=== PATIENT | female | born 1960 | race Caucasian/White ===

== ENCOUNTER 2024-12-11 10:02 | Inpatient (IN) | payer OTHER, SELFPAY ==
--- NOTE | ~2024-12-11 | CT_ITS ---
EXAMINATION: CT ABDOMEN PELVIS WITH IV CONTRAST HISTORY: RUQ abd pain COMPARISON: There are no prior studies for comparison. TECHNIQUE: CT scan of the abdomen and pelvis was performed following administration of 85 mL Omnipaque 350 using standard departmental protocol. Coronal and sagittal reformatted images were generated and reviewed. Oral contrast material was not administered at the request of the referring physician. This CT exam was performed with one or more of the following dose reduction techniques: automated exposure control, adjustment of the mA and/or kV according to patient size, use of iterative reconstruction technique. DLP: 667 mGy-cm FINDINGS: LOWER CHEST: The visualized lung bases are clear. There is no pleural effusion. CARDIOVASCULATURE: The heart is normal in size. There is no pericardial effusion. LIVER: The liver is normal in size and contour. No liver mass is identified. The hepatic and portal veins are patent. GALLBLADDER / BILE DUCTS: The gallbladder is unremarkable. There is no intra or extrahepatic biliary ductal dilatation. SPLEEN: The spleen is normal in size. No focal splenic lesion is identified. PANCREAS: The pancreas is unremarkable in appearance. ADRENAL GLANDS: Within normal limits. KIDNEYS/RETROPERITONEUM: There is a punctate nonobstructing calculus at the lower pole of the left kidney. There is no hydronephrosis. No renal masses are identified. LYMPH NODES: No abdominal or pelvic lymphadenopathy. VASCULATURE: The abdominal aorta demonstrates atherosclerotic calcification, but is normal in caliber. MESENTERY/PERITONEUM: No free fluid. No masses. There is no free intraperitoneal gas. STOMACH: The stomach is collapsed, limiting evaluation. SMALL BOWEL: The small bowel is normal in caliber. COLON: There is diffuse diverticulosis of the colon. There is a focal area of marked colonic wall thickening and pericolonic inflammatory stranding involving the proximal transverse colon. Findings likely represent diverticulitis. There is no adjacent extraluminal gas or loculated fluid collection. APPENDIX: Normal. URINARY BLADDER/PELVIC ORGANS: The urinary bladder is collapsed, limiting evaluation. The patient is status post hysterectomy. BONES / SOFT TISSUES: No suspicious bony or soft tissue abnormalities. CT/CT abdomen pelvis w IV con IMPRESSION: Marked wall thickening of the proximal transverse colon with associated pericolonic inflammatory stranding, likely representing diverticulitis. Follow-up colonoscopy is recommended to exclude underlying neoplasm if this has not recently been performed. Electronically signed by: Gerard Manrique MD 12/11/2024 12:02 PM EDT
--- NOTE | 2024-12-11 10:05 | ED_ITS ---
HPI - General Adult General Chief complaint: Abdominal Pain Stated complaint: Abd pain R side Time Seen by Provider: 12/11/24 10:04 Source: patient and other (patient's [id number]) Mode of arrival: ambulatory Limitations: no limitations History of Present Illness ED Provider: Tata Feliz PA-C HPI narrative: 64 year old female with PMHx COPD, IBS, diverticulitits s/p colectomy, presenting to ED c/o abd pain. She reports RLQ pain that woke her up from sleep around 0500, that has since migrated to the RUQ. She describes the pain as 10/10 nonradiating, sharp, and constant, and states it does not feel like her IBS. Reports last BM this AM. Reports previous abd surgeries include partial hysterectomy and colon resection secondary to diverticulitis. Denies RODRIGUEZ, CP, SOB, N/V/D, urinary symptoms, numbness/tingling. Denies alcohol or drug use. Reports smoking 1/2 pack cigarettes daily, however has not smoked in a few days. Reports last ate or drank at midnight. Onset (ago): hour(s) Location: abdomen Radiation: non-radiation Quality: sharp Pain Consistency: constant Relieving factors: none Exacerbating factors: none Treatments prior to arrival: none Related Data Allergies Allergy/AdvReac Type Severity Reaction Status Date / Time Sulfa (Sulfonamide AdvReac Gastrointestinal Verified 12/11/24 10:12 Antibiotics) Upset Review of Systems 2 Constitutional: Constitutional: Reports no additional constitutional complaints, Reports chills, Denies fever(s) and Denies night sweats Eyes: Eyes: Reports no additional eye complaints, Denies blurry vision, Denies change in vision, Denies diplopia, Denies eye discharge, Denies loss of vision and Denies eye pain ENT: Denies dizziness Cardiovascular: Cardiovascular: Reports no additional cardiovascular complaints, Denies chest pain, Denies lightheadedness, Denies Loss of Consciousness and Denies dyspnea Respiratory: Respiratory: Reports no additional respiratory complaints and Denies dyspnea Gastrointestinal: Gastrointestinal: Reports no additional gastrointestinal complaints, Reports abdominal pain, Denies melena, Denies hematochezia, Denies change in bowel habits, Denies change in stool character, Denies nausea and Denies vomiting Genitourinary: Genitourinary: Denies hematuria, Denies urinary frequency, Denies dysuria, Denies urinary incontinence, Denies urinary hesitancy and Denies urinary urgency Musculoskeletal: Musculoskeletal: Reports no additional musculoskeletal complaints, Denies numbness and Denies tingling Neurologic: Denies dizziness, Denies loss of vision, Denies numbness and Denies tingling Psychiatric: Psychiatric: Reports no additional psychiatric complaints Endocrine: Endocrine: Reports no additional endocrine complaints Hematologic/Lymphatic: Hematologic/Lymphatic: Reports no additional hematologic/lymphatic complaints Allergic/Immunologic: Allergic/Immunologic: Reports no additional allergic/immunologic complaints PMFSH Past Medical History Attestation statement: The following information was validated with the patient. (all information validated with the patient's [id number]) Source: old records reviewed, obtained from family (patient's [id number] provided additional history and confirmed the history provided by the patient. ) and nursing notes reviewed Medical History (Updated 12/11/24 @ 13:50 by SILVER Quesada) COPD (chronic obstructive pulmonary disease) History of diverticulitis Hyperlipidemia Hypertension Surgical History (Updated 12/11/24 @ 13:24 by SILVER Jackson) S/P hysterectomy S/P colectomy Social History Social History Alcohol intake: current Alcohol intake frequency: holidays/special occasions only Smoked in Last 30 Days: Yes Use of substances other than those prescribed or required for medical reasons: No Advance Directives: No Advance Directives Information Provided: Yes Physical Exam ED Vital Signs: Vital Signs - 24 hr 12/11/24 10:08 Temperature 98.3 F Pulse Rate 74 Respiratory Rate 20 Blood Pressure 140/82 H Pulse Oximetry 95 Oxygen Delivery Method Room Air BMI result Body Mass Index 30.2 Const General: cooperative, no acute distress, alert and awake Nutritional Appearance: well nourished Orientation/consciousness: patient oriented x3 Limitations: no limitations HENMT Head: Yes normal to inspection and Yes atraumatic Ears: hearing grossly normal bilaterally and external ears normal General nose exam: Normal external nose present, no nasal discharge noted and no epistaxis Face and sinus: Yes normal facial exam, No abrasion and No laceration Mouth: Normal oral and palatal mucosa present, no drooling and no muffled voice Eyes General: appearance normal, both eyes and all related structures Periorbital: periorbital findings normal Eyelids: Yes eyelids normal Conjunctivae: conjunctivae normal Pupils: Equal, round and reactive pupils present EOM: EOMs intact bilaterally Neck Neck: Yes normal visual inspection, Yes full ROM and Yes no lymphadenopathy Chest Chest palpation & inspection: normal inspection of the chest Resp Effort & Inspection: normal respiratory effort and able to speak in complete sentences GI Inspection: Yes normal to inspection Palpation (GI): Soft to palpation, not firm, Tenderness to palpation present (GI), no guarding and not rigid Neuro General: patient oriented x3, moves all extremities and CN's II-XI intact bilaterally Cranial nerves: Yes Equal, round and reactive pupils present Cognition (Neuro): normal cognition Extrem General: Yes normal to inspection, Yes full ROM and Yes capillary refill normal Psych Appearance: grossly normal Mental Status: mental status grossly normal Affect: normal affect Attitude: cooperative Thought process: Normal thought process present Thought content: Normal thought content present Insight: Good insight present (Psych) Medications Administered Generic Name Dose Route Start Last Admin Trade Name Freq PRN Reason Stop Dose Admin Metronidazole 500 mg in 100 mls @ 100 mls/hr 12/11/24 13:00 12/11/24 13:24 Flagyl IV 100 mls/hr Q8H TASH Administration Discontinued Medications Generic Name Dose Route Start Last Admin Trade Name Freq PRN Reason Stop Dose Admin Acetaminophen 1,000 mg in 100 mls @ 400 mls/hr 12/11/24 11:46 12/11/24 12:38 Ofirmev IV 12/11/24 12:00 Infused ONCE ONE Infusion Sodium Chloride 1,000 mls @ 999 mls/hr 12/11/24 12:00 12/11/24 13:27 Ns IV 12/11/24 13:00 Infused .Q1H1M TASH Infusion Ampicillin Sodium/Sulbactam 100 mls @ 200 mls/hr 12/11/24 12:12 12/11/24 13:27 Sodium 1.5 gm/ Sodium Chloride IV 12/11/24 12:41 Infused ONCE ONE Infusion Iohexol 85 ml 12/11/24 11:47 12/11/24 11:47 Iohexol 350 Mg/Ml 75 Ml Infus..Btl IV 12/11/24 11:48 85 ml ONCE ONE Administration Morphine Sulfate 4 mg 12/11/24 10:20 12/11/24 10:38 Morphine Sulfate 4 Mg/Ml Cartridge IVPUSH 12/11/24 10:21 4 mg ONCE ONE Administration Protocol Ondansetron HCl 4 mg 12/11/24 10:20 12/11/24 10:36 Ondansetron Hcl 4 Mg/2 Ml Vial IVPUSH 12/11/24 10:21 4 mg ONCE ONE Administration Pantoprazole Sodium 40 mg 12/11/24 10:21 12/11/24 10:41 Pantoprazole Sodium 40 Mg/10 Ml Vial IVPUSH 12/11/24 10:22 40 mg ONCE ONE Administration Medical Decision Making Medical Decision Making MDM Narrative: Patient is a 64 year old assigned female at with a history of tobacco use, partial hysterectomy, and a colectomy secondary to diverticulitis. presenting to the emergency department today with abdominal pain and chills. Patient's physical exam was as noted in the physical exam portion of this note. Patient's blood work showed an elevated WBC count of 12.9 with a left shift but otherwise unremarkable. Patient's CT abd/pelvis showed evidence of diverticulitis. Given the patient's history and current clinical presentation, will admit. Patient was given IV flagyl + unasyn and Morphine + Tylenol. I spoke with the hospitalist team who agreed to admission. General surgery team consulted on the case. Patient's clinical presentation is not consistent with sepsis. I explained my physical exam findings as well as all test results to the patient and the patient's [id number]. I answered all questions asked by the patient and the patient's [id number]. Patient and the patient's [id number] verbalized agreement and understanding with this treatment plan and admission. Differential Diagnosis Differential Diagnoses: The differential diagnosis associated with the presentation includes Diverticulitis Abdominal pain Intractable abdominal pain Admission/Observation Consideration of admission/observation: Escalation of care including admission/observation considered Patient admitted as noted in the MDM Rationale portion of this note. Consult Healthcare Provider Management of the patient was discussed with: Hospitalist (agreed to admission as noted in the MDM Rationale portion of this note. ) and Infrastructure Security Architect (general surgery team consulted) Lab Data [facility] Lab Attestation statement: I reviewed the patient's lab results. My interpretation of these results are in the MDM Rationale portion of this note. 12/11/24 10:29 12/11/24 10:29 Labs: Lab Results 12/11/24 12/11/24 Range/Units 10:29 12:11 WBC 12.9 H (4.8-10.8) X10*3/uL RBC 4.76 (4.20-5.50) X10*6/uL Hgb 15.1 (12.0-16.0) g/dl Hct 43.6 (37.0-47.0) % MCV 91.6 (80.0-98.0) fL MCH 31.7 (27.0-33.0) pg MCHC 34.6 (31.0-35.0) g/dl RDW 12.6 (11.0-16.0) % Plt Count 355 (160-400) X10*3/uL MPV 8.7 L (9.4-12.3) fL Immature Gran % (Auto) 0.5 H (0.0-0.4) % Neut % (Auto) 76.5 H (45-73) % Lymph % (Auto) 15.0 L (20-40) % [place] % (Auto) 7.6 (2-11) % Eos % (Auto) 0.2 (0-4) % Baso % (Auto) 0.2 (0-2) % Lymph # (Auto) 1.9 (1.2-4.9) X10*3/uL [place] # (Auto) 1.0 (0.1-1.2) X10*3/uL Eos # (Auto) 0.0 (0.0-0.4) X10*3/uL Baso # (Auto) 0.0 (0.0-0.2) X10*3/uL Abs Immat Gran (auto) 0.06 H (0.00-0.03) X10*3/uL Absolute Neuts (auto) 9.9 H (2.0-8.3) x10*3/uL Absolute Nucleated RBC 0.000 (0.0-0.012) X10*3/uL Nucleated RBC % (auto) 0.0 (0.0-0.2) /100WBC Sodium 139 (135-145) mmol/L Potassium 3.3 (3.3-5.1) mmol/L Chloride 109 H (96-108) mmol/L Carbon Dioxide 24 (22-29) mmol/L Anion Gap 9 L (12-20) BUN 12 (9-16) mg/dL Creatinine 0.68 (0.5-1.4) mg/dL Estim Creat Clear Calc 90.5 Estimated GFR > 60 Random Glucose 117 H (60-115) mg/dL Calcium 10.3 H (8.4-10.2) mg/dL Total Bilirubin 0.6 (0.0-1.0) mg/dL AST 19 (5-31) U/L ALT 23 (0-31) U/L Alkaline Phosphatase 72 (39-117) U/L Total Protein 6.8 (6.5-8.0) g/dL Albumin 4.3 (3.5-5.0) g/dL Urine Color Yellow Urine Appearance Clear Urine pH 6.0 (5.0-9.0) Ur Specific [place] >= 1.030 H (1.005-1.025) Urine Protein Trace (Neg-Trace) mg/dL Urine Glucose (UA) Negative (Negative) mg/dL Urine Ketones Negative (Negative) mg/dL Urine Blood Negative (Negative) Urine Nitrite Negative (Negative) Ur Leukocyte Esterase Negative (Negative) Influenza Type A (PCR) NEGATIVE (Negative) Influenza Type B (PCR) NEGATIVE (Negative) RSV RNA Qual (PCR) NEGATIVE (Negative) SARS-CoV-2 RNA (RT-PCR) NEGATIVE (Negative) Independent Interpretation I performed an independent interpretation of an: CT Scan Interpretation: My interpretation is in agreement with the radiologist's impression of this imaging study. L Report Number: [id number]: Total DLP = 667.00 mGy-cm EXAMINATION: CT ABDOMEN PELVIS WITH IV CONTRAST HISTORY: RUQ abd pain COMPARISON: There are no prior studies for comparison. TECHNIQUE: CT scan of the abdomen and pelvis was performed following administration of 85 mL Omnipaque 350 using standard departmental protocol. Coronal and sagittal reformatted images were generated and reviewed. Oral contrast material was not administered at the request of the referring physician. This CT exam was performed with one or more of the following dose reduction techniques: automated exposure control, adjustment of the mA and/or kV according to patient size, use of iterative reconstruction technique. DLP: 667 mGy-cm FINDINGS: LOWER CHEST: The visualized lung bases are clear. There is no pleural effusion. CARDIOVASCULATURE: The heart is normal in size. There is no pericardial effusion. LIVER: The liver is normal in size and contour. No liver mass is identified. The hepatic and portal veins are patent. GALLBLADDER / BILE DUCTS: The gallbladder is unremarkable. There is no intra or extrahepatic biliary ductal dilatation. SPLEEN: The spleen is normal in size. No focal splenic lesion is identified. PANCREAS: The pancreas is unremarkable in appearance. ADRENAL GLANDS: Within normal limits. KIDNEYS/RETROPERITONEUM: There is a punctate nonobstructing calculus at the lower pole of the left kidney. There is no hydronephrosis. No renal masses are identified. LYMPH NODES: No abdominal or pelvic lymphadenopathy. VASCULATURE: The abdominal aorta demonstrates atherosclerotic calcification, but is normal in caliber. MESENTERY/PERITONEUM: No free fluid. No masses. There is no free intraperitoneal gas. STOMACH: The stomach is collapsed, limiting evaluation. SMALL BOWEL: The small bowel is normal in caliber. COLON: There is diffuse diverticulosis of the colon. There is a focal area of marked colonic wall thickening and pericolonic inflammatory stranding involving the proximal transverse colon. Findings likely represent diverticulitis. There is no adjacent extraluminal gas or loculated fluid collection. APPENDIX: Normal. URINARY BLADDER/PELVIC ORGANS: The urinary bladder is collapsed, limiting evaluation. The patient is status post hysterectomy. BONES / SOFT TISSUES: No suspicious bony or soft tissue abnormalities. CT/CT abdomen pelvis w IV con IMPRESSION: Marked wall thickening of the proximal transverse colon with associated pericolonic inflammatory stranding, likely representing diverticulitis. Follow-up colonoscopy is recommended to exclude underlying neoplasm if this has not recently been performed. Electronically signed by: Gerard Manrique MD 12/11/2024 12:02 PM EDT Dictated By: Gerard Manrique MD Signed By: Electronically signed by Gerard Manrique MD 12/11/24 7209 Independent Historian Clinical information obtained from an independent historian. History obtained from or confirmed by: Other (patient's [id number] provided additional history and confirmed the history provided by the patient.) Critical Care Time Critical Care Time Critical Care Time: Yes Total Critical Care Time: 41 Attestation: I spent 41 minutes of Critical Care Time with this patient. This does not include time spent on separately reported billable procedures. Discharge Plan Discharge Clinical Impression: Diverticulitis, Intractable pain Patient Disposition: Admitted As Inpatient
[2024-12-11 10:08] VITALS: BP 140/82; PULSE 74; RESP 20; TEMP 36.8; O2SAT 95; BMI 30.2
[2024-12-11 10:34] LABS: MANUAL DIFF FLAG NO
[2024-12-11] MEDS: ondansetron HCL 4 MG/2 ML VIAL IVPUSH (10:36)
[2024-12-11 10:37] LABS: Basophils Percent Auto 0.2 % (0-2); Eosinophils Percent Auto 0.2 % (0-4); Hematocrit 43.6 % (37.0-47.0); Hemoglobin 15.1 g/dl (12.0-16.0); Imm Gran Abs Auto 0.06 X10*3/uL (0.00-0.03); Imm Gran Pct Auto 0.5 % (0.0-0.4); Lymphocytes Absolute Auto 1.9 X10*3/uL (1.2-4.9); Mean Corpuscular HGB Conc 34.6 g/dl (31.0-35.0); Mean Corpuscular Hemoglobin 31.7 pg (27.0-33.0); Mean Corpuscular Volume 91.6 fL (80.0-98.0); Mean Platelet Volume 8.7 fL (9.4-12.3); Monocytes Percent Auto 7.6 % (2-11); Neutrophils Absolute Auto 9.9 x10*3/uL (2.0-8.3); Neutrophils Percent Auto 76.5 % (45-73); Platelet Count 355 X10*3/uL (160-400); Red Blood Count 4.76 X10*6/uL (4.20-5.50); Red Cell Distribution Width 12.6 % (11.0-16.0); White Blood Count 12.9 X10*3/uL (4.8-10.8)
[2024-12-11] MEDS: Morphine Sulfate 4 MG/ML CARTRIDGE IVPUSH (10:38)
[2024-12-11] MEDS: Pantoprazole Sodium 40 MG/10 ML VIAL IVPUSH (10:41)
[2024-12-11 10:56] LABS: Alanine Aminotransferase 23 U/L (0-31); Albumin Level 4.3 g/dL (3.5-5.0); Alkaline Phosphatase 72 U/L (39-117); Anion Gap 9 (12-20); Aspartate Amino Transferase 19 U/L (5-31); Bilirubin Total 0.6 mg/dL (0.0-1.0); Blood Urea Nitrogen 12 mg/dL (9-16); Calcium 10.3 mg/dL (8.4-10.2); Carbon Dioxide 24 mmol/L (22-29); Chloride 109 mmol/L (96-108); Creatinine Clr Calc Pharmacy 90.5; Estimated Glomerular Filt Rate > 60; Glucose Random 117 mg/dL (60-115); Potassium 3.3 mmol/L (3.3-5.1); Sodium 139 mmol/L (135-145); Total Protein 6.8 g/dL (6.5-8.0)
[2024-12-11 11:18] LABS: Influenza A PCR NEGATIVE (Negative); Influenza B PCR NEGATIVE (Negative); Resp Syncy Virus RNA Qual PCR NEGATIVE (Negative); SARS COV2 PCR INHOUSE NEGATIVE (Negative)
[2024-12-11] MEDS: iohexoL 350 MG/ML 75 ML INFUS..BTL 85 ML IV (11:47)
[2024-12-11] MEDS: Acetaminophen 1,000 MG/100 ML PIGGYBACK 400 MG IV (12:05)
[2024-12-11] MEDS: 0.9 % Sodium Chloride 1,000 ML 999 ML IV (12:06)
[2024-12-11 12:21] LABS: Appearance Urine Clear; Color Urine Yellow; Glucose Urine UA Negative (Negative); Leukocyte Esterase Urine Negative (Negative); Nitrite Urine Negative (Negative); Specific Gravity - Urine >= 1.030 (1.005-1.025); Urine Blood Negative (Negative); Urine Ketones Negative (Negative); Urine Protein Trace mg/dL (Neg-Trace)
[2024-12-11] MEDS: Ampicillin Sodium/Sulbactam Na 1.5 GM in 0.9 % Sodium Chloride 100 ML IV (12:35)
--- NOTE | 2024-12-11 13:11 | P.HPHOSP_ITS ---
History of Present Illness Date of Service: 12/11/24 Attending physician on admission: Teofilo Quiroz Chief Complaint: abd pain 64 year old female with PMHx COPD, IBS, diverticulitits s/p colectomy, s/p hysterectomy presented to the ED earlier today for evaluation of severe right- sided abdominal pain that started abruptly around 4-5 this morning. She states the pain started in the right lower quadrant but is now more severe in the right upper quadrant. There is no other radiation. She does experience some mild nausea. No fevers, chills, vomiting, change in bowel habits, melena, hematochezia, anorexia. No unintentional weight loss. She does tell me that she had an upper respiratory infection about 2 weeks ago and was recently on prednisone as well as an inhaler. States that symptoms have mostly resolved. While asleep in the ED, she did desaturate to 88%, question whether this was related to narcotic administration in the ED. vital signs have otherwise been stable. She has a leukocytosis of 12.5. Renal function and electrolyte levels unremarkable. Glucose 117. Hepatic function within normal limits. Urinalysis not indicative of infection though elevated specific gravity. Negative for COVID, flu, RSV. CT abdomen/pelvis shows marked wall thickening of the proximal transverse colon with associated pericolonic inflammatory stranding possibly representing diverticulitis. Follow-up colonoscopy removed to exclude underlying neoplasm. She did have colonoscopy in the past, unclear when this was. In the ED, has been treated with IV Unasyn and Flagyl with pantoprazole, IV Tylenol, IV morphine. Review of Systems 2 Review of Systems: Yes all other systems are reviewed and are negative [facility] Medical History (Updated 12/11/24 @ 13:24 by SILVER Jackson) COPD (chronic obstructive pulmonary disease) History of diverticulitis Hyperlipidemia Hypertension Surgical History (Updated 12/11/24 @ 13:24 by SILVER Jackson) S/P hysterectomy S/P colectomy Social History Alcohol intake: current Alcohol intake frequency: holidays/special occasions only Smoked in Last 30 Days: Yes Use of substances other than those prescribed or required for medical reasons: No Advance Directives: No Advance Directives Information Provided: Yes Meds Allergies Allergy/AdvReac Type Severity Reaction Status Date / Time Sulfa (Sulfonamide AdvReac Gastrointestinal Verified 12/11/24 10:12 Antibiotics) Upset Active Medications: Current Medications Metronidazole (Flagyl) 500 mg in 100 mls @ 100 mls/hr IV ONCE ONE Stop: 12/11/24 13:11 Physical Exam 2 Vital Signs and Narrative: Vital Signs: Last Vital Signs Temp 98.3 F 12/11/24 10:08 Pulse 74 12/11/24 10:08 Resp 20 12/11/24 10:08 BP 140/82 H 12/11/24 10:08 Pulse Ox 95 12/11/24 10:08 O2 Del Method Room Air 12/11/24 10:08 BMI result Body Mass Index 30.2 Results Labs 12/11/24 10:29 12/11/24 10:29 Labs: Laboratory Results - last 24 hr 12/11/24 12/11/24 10:29 12:11 MCV 91.6 MCH 31.7 MCHC 34.6 RDW 12.6 Plt Count 355 MPV 8.7 L Immature Gran % (Auto) 0.5 H Neut % (Auto) 76.5 H Lymph % (Auto) 15.0 L [place] % (Auto) 7.6 Eos % (Auto) 0.2 Baso % (Auto) 0.2 Lymph # (Auto) 1.9 [place] # (Auto) 1.0 Eos # (Auto) 0.0 Baso # (Auto) 0.0 Abs Immat Gran (auto) 0.06 H Absolute Neuts (auto) 9.9 H Absolute Nucleated RBC 0.000 Nucleated RBC % (auto) 0.0 Anion Gap 9 L Estim Creat Clear Calc 90.5 Estimated GFR > 60 Random Glucose 117 H Calcium 10.3 H Total Bilirubin 0.6 AST 19 ALT 23 Alkaline Phosphatase 72 Total Protein 6.8 Albumin 4.3 Urine Color Yellow Urine Appearance Clear Urine pH 6.0 Ur Specific [place] >= 1.030 H Urine Protein Trace Urine Glucose (UA) Negative Urine Ketones Negative Urine Blood Negative Urine Nitrite Negative Ur Leukocyte Esterase Negative Influenza Type A (PCR) NEGATIVE Influenza Type B (PCR) NEGATIVE RSV RNA Qual (PCR) NEGATIVE SARS-CoV-2 RNA (RT-PCR) NEGATIVE Imaging Radiologist's Impressions: Impressions Abdomen/Pelvis CT 12/11/24 10:20 IMPRESSION: Marked wall thickening of the proximal transverse colon with associated pericolonic inflammatory stranding, likely representing diverticulitis. Follow-up colonoscopy is recommended to exclude underlying neoplasm if this has not recently been performed. Electronically signed by: Gerard Manrique MD 12/11/2024 12:02 PM EDT RP Assessment and Plan (1) Diverticulitis: Status: Acute (2) Intractable pain: Status: Acute Plan 64 year old female with PMHx COPD, IBS, hypertension, hyperlipidemia diverticulitits s/p colectomy, s/p hysterectomy admitted for further management of intractable pain related to acute diverticulitis. Acute diverticulitis of the proximal colon with intractable pain WBC 12.5. No other SIRS criteria. No sepsis/severe sepsis on admission 1321 CT abdomen/pelvis shows marked wall thickening of the proximal transverse colon with associated pericolonic inflammatory stranding possibly representing diverticulitis. Follow-up colonoscopy removed to exclude underlying neoplasm. No abscess or perforation IV ceftriaxone and Flagyl (12/11) Pain management with oxycodone and IV morphine p.r.n. using pain scale NPO diet with small sips and ice chips, advance diet as tolerated General surgery consult-discussed with surgery, likely outpatient colonoscopy Follow CBC COPD no acute exacerbation Nebs p.r.n. Hyperlipidemia Statin Hypertension Lisinopril and metoprolol Mood disorder Continue home meds DVT prophylaxis-Lovenox Full code Patient requires inpatient stay at least 2 midnights for management of intractable pain related to acute uncomplicated diverticulitis which will require IV pain management and expert consultation Quality Stroke Does the patient have a stroke diagnosis?: No VTE Prior VTE?: No VTE Risk Level:: Medical - moderate - high VTE Device Contraindication: Treatment Not Indicated VTE Drug Contraindication: N/A - Med Ordered
[2024-12-11] MEDS: metroNIDAZOLE/NS 500 MG/100 ML PIGGYBACK 100 MG IV ×2 (13:24→21:17)
[2024-12-11 13:26] VITALS: BP 118/66; PULSE 74; RESP 18; O2SAT 96
--- NOTE | 2024-12-11 13:46 | PM.CNGS ---
History of Present Illness Consult details Consult date: 12/11/24 Requesting physician: Yuliana Ceja Narrative: 64 year old female with PMHx COPD, IBS, diverticulitits s/p colectomy, s/p hysterectomy presented to the ED earlier today for evaluation of severe right-sided abdominal pain that started abruptly around 4-5 this morning. She states the pain started in the right lower quadrant but is now more severe in the right upper quadrant. Patient has had a history of diverticulitis in the past and had a previous colectomy which seems like it is probably in her left lower quadrant by history. She says this feels a little different than her diverticulitis. She has not had any diverticulitis episodes in the long time. She can not remember when was her last time having a colonoscopy. Her father did have colon cancer so she is supposed to be receiving regular screenings. She denies any blood in her stools. She has just been having her regular IBS back and forth between constipation and loose stools. Here her white count was noted to be little elevated she was tender in the right upper quadrant and CT scan of her abdomen and pelvis shows inflammatory changes and thickening of her proximal transverse colon which goes along with where she is tender. It also shows carlson diverticulosis present. Patient recently was treated also for some respiratory issues. Review of Systems Review of Systems: Yes all other systems are reviewed and are negative [facility] Past Medical History Medical History (Updated 12/11/24 @ 13:50 by SILVER Quesada) COPD (chronic obstructive pulmonary disease) History of diverticulitis Hyperlipidemia Hypertension Surgical History Surgical History (Updated 12/11/24 @ 13:24 by SILVER Jackson) S/P hysterectomy S/P colectomy Social History Social History Household Members: None Housing: House Alcohol intake: current Alcohol intake frequency: holidays/special occasions only Patient Tobacco Use Status: Former Tobacco user Tobacco use type: Cigarette Meds Allergies Allergy/AdvReac Type Severity Reaction Status Date / Time Sulfa (Sulfonamide AdvReac Gastrointestinal Verified 12/11/24 10:12 Antibiotics) Upset Active Medications: Current Medications Acetaminophen (Acetaminophen 325 Mg Tablet) 650 mg PO Q6H PRN PRN Reason: Pain, Mild 1-3,fever,headache Albuterol/Ipratropium (Albuterol/Iprat 2.5/0.5mg 3 Ml Ampul.Neb) 3 ml INHALE Q4H PRN PRN Reason: Shortness of Breath/Wheezing Calcium Carbonate (Calcium Carbonate 750 Mg Tab.Chew) 750 mg PO Q4H PRN PRN Reason: Heartburn Ceftriaxone Sodium (Ceftriaxone Sodium 1 Gm Vial) 1 gm IVPUSH Q24H [facility] Lactated Ringer's (Lr) 1,000 mls @ 100 mls/hr IVCONT .Q10H [facility] Metronidazole (Flagyl) 500 mg in 100 mls @ 100 mls/hr IV Q8H [facility] Last Admin: 12/11/24 13:24 Dose: 100 mls/hr Magnesium Hydroxide (Milk Of Magnesia 30 Ml Oral.Susp) 30 ml PO DAILY PRN PRN Reason: Constipation Melatonin (Melatonin 3 Mg Tablet) 6 mg PO BEDTIME PRN PRN Reason: Insomnia Morphine Sulfate (Morphine Sulfate 4 Mg/Ml Cartridge) 2 mg IVPUSH Q4H PRN; Protocol PRN Reason: Pain, Severe (Pain Scale 7-10) Oxycodone HCl (Oxycodone Hcl Immed Release 5 Mg Tablet) 5 mg PO Q6H PRN PRN Reason: Pain, Moderate(Pain Scale 4-6) Sodium Chloride (0.9 % Sodium Chloride Flush 3 Ml Syringe) 3 ml IVFLUSH QSHIFT [facility] Home Medications ?Medication ?Instructions ?Recorded ?Confirmed ?Last Taken ?Type benzonatate 200 mg capsule 200 mg PO TID cough 12/11/24 12/11/24 12/10/24 History methylphenidate HCl 20 mg tablet 30 mg PO BID@1000,1600 12/11/24 12/11/24 12/10/24 History metoprolol succinate 25 mg 25 mg PO DAILY 12/11/24 12/11/24 12/10/24 History tablet,extended release 24 hr simvastatin 40 mg tablet 40 mg PO BEDTIME 12/11/24 12/11/24 12/10/24 History Physical Exam Vital Signs: Vital Signs: Last Vital Signs Temp 98.3 F 12/11/24 10:08 Pulse 74 12/11/24 13:26 Resp 18 12/11/24 13:26 BP 118/66 12/11/24 13:26 Pulse Ox 96 12/11/24 13:26 O2 Del Method Nasal Cannula 12/11/24 13:26 O2 Flow Rate 2 12/11/24 13:26 BMI result Body Mass Index 30.2 Const: General: cooperative, healthy appearing, comfortable and no acute distress Nutritional Appearance: overweight Resp: Effort & Inspection: normal respiratory effort Auscultation: clear to auscultation bilaterally Cardio: Rate: regular rate Rhythm: regular rhythm GI: Other: Abdomen is soft nondistended she is tender in the right upper quadrant with some guarding no peritoneal signs active bowel sounds the rest of her abdomen is soft nontender. Extrem: General: Yes normal to inspection Psych: Appearance: grossly normal Mental Status: mental status grossly normal Speech and movement: Normal speech and movement present Affect: normal affect Attitude: cooperative Thought content: Normal thought content present Insight: Good insight present (Psych) Judgement: Good judgement present (Psych) Results Labs 12/11/24 10:29 12/11/24 10:29 Labs: Abnormal lab results 12/11/24 12/11/24 Range/Units 10:29 12:11 WBC 12.9 H (4.8-10.8) X10*3/uL MPV 8.7 L (9.4-12.3) fL Immature Gran % (Auto) 0.5 H (0.0-0.4) % Neut % (Auto) 76.5 H (45-73) % Lymph % (Auto) 15.0 L (20-40) % Abs Immat Gran (auto) 0.06 H (0.00-0.03) X10*3/uL Absolute Neuts (auto) 9.9 H (2.0-8.3) x10*3/uL Chloride 109 H (96-108) mmol/L Anion Gap 9 L (12-20) Random Glucose 117 H (60-115) mg/dL Calcium 10.3 H (8.4-10.2) mg/dL Ur Specific [place] >= 1.030 H (1.005-1.025) Short CBC 12/11/24 Range/Units 10:29 WBC 12.9 H (4.8-10.8) X10*3/uL Hgb 15.1 (12.0-16.0) g/dl Hct 43.6 (37.0-47.0) % Plt Count 355 (160-400) X10*3/uL BMP 12/11/24 10:29 Sodium 139 Potassium 3.3 Chloride 109 H Carbon Dioxide 24 BUN 12 Creatinine 0.68 Calcium 10.3 H Liver Function 12/11/24 Range/Units 10:29 Total Bilirubin 0.6 (0.0-1.0) mg/dL AST 19 (5-31) U/L ALT 23 (0-31) U/L Alkaline Phosphatase 72 (39-117) U/L Albumin 4.3 (3.5-5.0) g/dL Urine 12/11/24 Range/Units 12:11 Urine Color Yellow Urine Appearance Clear Urine pH 6.0 (5.0-9.0) Ur Specific [place] >= 1.030 H (1.005-1.025) Urine Protein Trace (Neg-Trace) mg/dL Urine Glucose (UA) Negative (Negative) mg/dL All other labs normal. Imaging Abdomen CT scan report/results: report reviewed and image reviewed CT scan - pelvis: report reviewed and image reviewed Additional studies: MR#: [id number] : 1960 Acct:[id number] Age/Sex: 64 / F ADM Date: 12/11/24 Loc: HO.ED Attending Dr: Ordering Physician: Tata Feliz Date of Service: 12/11/24 Procedure(s): CT abdomen pelvis w IV con Accession Number(s): [id number] cc: Tata Feliz; Chavo Hernandez DO, MD~ Report Number: [id number]: Total DLP = 667.00 mGy-cm EXAMINATION: CT ABDOMEN PELVIS WITH IV CONTRAST HISTORY: RUQ abd pain COMPARISON: There are no prior studies for comparison. TECHNIQUE: CT scan of the abdomen and pelvis was performed following administration of 85 mL Omnipaque 350 using standard departmental protocol. Coronal and sagittal reformatted images were generated and reviewed. Oral contrast material was not administered at the request of the referring physician. This CT exam was performed with one or more of the following dose reduction techniques: automated exposure control, adjustment of the mA and/or kV according to patient size, use of iterative reconstruction technique. DLP: 667 mGy-cm FINDINGS: LOWER CHEST: The visualized lung bases are clear. There is no pleural effusion. CARDIOVASCULATURE: The heart is normal in size. There is no pericardial effusion. LIVER: The liver is normal in size and contour. No liver mass is identified. The hepatic and portal veins are patent. GALLBLADDER / BILE DUCTS: The gallbladder is unremarkable. There is no intra or extrahepatic biliary ductal dilatation. SPLEEN: The spleen is normal in size. No focal splenic lesion is identified. PANCREAS: The pancreas is unremarkable in appearance. ADRENAL GLANDS: Within normal limits. KIDNEYS/RETROPERITONEUM: There is a punctate nonobstructing calculus at the lower pole of the left kidney. There is no hydronephrosis. No renal masses are identified. LYMPH NODES: No abdominal or pelvic lymphadenopathy. VASCULATURE: The abdominal aorta demonstrates atherosclerotic calcification, but is normal in caliber. MESENTERY/PERITONEUM: No free fluid. No masses. There is no free intraperitoneal gas. STOMACH: The stomach is collapsed, limiting evaluation. SMALL BOWEL: The small bowel is normal in caliber. COLON: There is diffuse diverticulosis of the colon. There is a focal area of marked colonic wall thickening and pericolonic inflammatory stranding involving the proximal transverse colon. Findings likely represent diverticulitis. There is no adjacent extraluminal gas or loculated fluid collection. APPENDIX: Normal. URINARY BLADDER/PELVIC ORGANS: The urinary bladder is collapsed, limiting evaluation. The patient is status post hysterectomy. BONES / SOFT TISSUES: No suspicious bony or soft tissue abnormalities. CT/CT abdomen pelvis w IV con IMPRESSION: Marked wall thickening of the proximal transverse colon with associated pericolonic inflammatory stranding, likely representing diverticulitis. Follow-up colonoscopy is recommended to exclude underlying neoplasm if this has not recently been performed. Electronically signed by: Gerard Manrique MD 12/11/2024 12:02 PM EDT Dictated By: Gerard Manrique MD Signed By: <Electronically signed by Gerard Manrique MD in OV> 12/11/24 1202 DD/ 1020 TD/TT: 12/11/24 1152 Shoe Lay Out Planner: Assessment and Plan (1) Diverticulitis: Status: Acute Plan 64-year-old female with right upper quadrant pain little elevated white count CT scan showing inflammatory changes in the colon in the proximal transverse colon and findings consistent with carlson diverticulosis. Patient has had a colectomy in the past most likely a sigmoid colectomy for diverticulitis. Right now the diagnosis that is being treated is diverticulitis and I think it is fair to keep her NPO IV fluids IV antibiotics and reassess tomorrow. If improving can advance her diet. Most likely she will improve without needing any surgical intervention after plan to have her undergo outpatient colonoscopy in about 4 weeks Procedures Date of Service Date of Service: 12/11/24
[2024-12-11] MEDS: cefTRIAXone sodium 1 GM VIAL IVPUSH (14:32)
[2024-12-11] MEDS: Lactated Ringers 1,000 ML 100 ML IVCONT ×2 (14:42→23:57)
--- NOTE | 2024-12-11 14:58 | PHA.MEDREC ---
Pharmacy Consult ? Medication Reconciliation Pharmacy has completed the medication reconciliation. Spoke to patient to confirm medication list. Per patient, she started taking prednisone 20 mg (2 tabs daily for 5 days) on last 12/06/24 so she finished it yesterday 12/10/24. She said she took albuterol a few times but it gave her head pressure. Last dose of medications was yesterday 12/10/24.
[2024-12-11] MEDS: oxyCODONE HCl Immed Release 5 MG TABLET PO (15:48)
[2024-12-11 18:31] VITALS: BP 122/66; PULSE 74; RESP 18; TEMP 36.9; O2SAT 93
[2024-12-11 19:56] VITALS: BP 125/60; PULSE 74; RESP 19; TEMP 37.3; O2SAT 93
[2024-12-11] MEDS: Morphine Sulfate 4 MG/ML CARTRIDGE 2 MG IVPUSH (21:15)
[2024-12-11] MEDS: Benzonatate 100 MG CAPSULE 200 MG PO (21:16)
[2024-12-11] MEDS: Atorvastatin Calcium 20 MG TABLET PO (21:17)
[2024-12-12 03:45] VITALS: BP 130/69; PULSE 85; RESP 17; TEMP 37.2; O2SAT 93
[2024-12-12] MEDS: metroNIDAZOLE/NS 500 MG/100 ML PIGGYBACK 100 MG IV ×3 (05:44→20:45)
[2024-12-12 06:58] LABS: MANUAL DIFF FLAG NO
[2024-12-12 07:07] LABS: Basophils Percent Auto 0.3 % (0-2); Eosinophils Percent Auto 0.1 % (0-4); Hematocrit 37.5 % (37.0-47.0); Hemoglobin 12.6 g/dl (12.0-16.0); Imm Gran Abs Auto 0.04 X10*3/uL (0.00-0.03); Imm Gran Pct Auto 0.4 % (0.0-0.4); Lymphocytes Absolute Auto 2.5 X10*3/uL (1.2-4.9); Lymphocytes Percent Auto 23.6 % (20-40); Mean Corpuscular HGB Conc 33.6 g/dl (31.0-35.0); Mean Corpuscular Hemoglobin 31.3 pg (27.0-33.0); Mean Corpuscular Volume 93.1 fL (80.0-98.0); Mean Platelet Volume 8.8 fL (9.4-12.3); Monocytes Absolute Auto 0.9 X10*3/uL (0.1-1.2); Monocytes Percent Auto 8.6 % (2-11); Platelet Count 310 X10*3/uL (160-400); Red Blood Count 4.03 X10*6/uL (4.20-5.50); Red Cell Distribution Width 12.8 % (11.0-16.0); White Blood Count 10.5 X10*3/uL (4.8-10.8)
[2024-12-12 07:39] LABS: Anion Gap 13 (12-20); Blood Urea Nitrogen 8 mg/dL (9-16); Calcium 9.6 mg/dL (8.4-10.2); Carbon Dioxide 23 mmol/L (22-29); Chloride 105 mmol/L (96-108); Creatinine Clr Calc Pharmacy 106.1; Estimated Glomerular Filt Rate > 60; Glucose Random 89 mg/dL (60-115); Potassium 3.6 mmol/L (3.3-5.1); Sodium 137 mmol/L (135-145)
[2024-12-12 07:52] VITALS: BP 123/65; PULSE 73; RESP 16; TEMP 36.6; O2SAT 92
--- NOTE | 2024-12-12 07:58 | PM.PNGS ---
Subjective Subjective Date of Service: 12/12/24 <Alba Lipscomb PA-C - Last Filed: 12/12/24 08:05> 12/12/24 <Chad Valentine MD - Last Filed: 12/12/24 08:49> Interval history: Feels slightly improved this morning, less pain. Feels hungry. Reports colonoscopy around two years ago at [facility], reports normal . <Alba Lipscomb PA-C - Last Filed: 12/12/24 08:05> Physical Exam Vital Signs: Vital Signs: Last Vital Signs Temp 97.8 F 12/12/24 07:52 Pulse 73 12/12/24 07:52 Resp 16 12/12/24 07:52 BP 123/65 12/12/24 07:52 Pulse Ox 92 12/12/24 07:52 O2 Del Method Room Air 12/12/24 07:52 O2 Flow Rate 2 12/11/24 13:26 BMI result Body Mass Index 30.2 <Alba Lipscomb PA-C - Last Filed: 12/12/24 08:05> Const: General: comfortable, no acute distress and alert <Alba Lipscomb PA-C - Last Filed: 12/12/24 08:05> Resp: Effort & Inspection: normal respiratory effort <ADORE Al Last Filed: 12/12/24 08:05> GI: Inspection: No distended <Alba Lipscomb PA-C - Last Filed: 12/12/24 08:05> Palpation (GI): Soft to palpation, Tenderness to palpation present (GI) (RUQ) with no rebound tenderness and no guarding <Alba Lipscomb PA-C - Last Filed: 12/12/24 08:05> Percussion: Yes normal to percussion <ADORE Al Last Filed: 12/12/24 08:05> Skin: General skin exam: no rashes or lesions noted <ADORE Al Last Filed: 12/12/24 08:05> Objective Data Active Medications Acetaminophen (Acetaminophen 325 Mg Tablet) 650 mg PO Q6H PRN PRN Reason: Pain, Mild 1-3,fever,headache Albuterol/Ipratropium (Albuterol/Iprat 2.5/0.5mg 3 Ml Ampul.Neb) 3 ml INHALE Q4H PRN PRN Reason: Shortness of Breath/Wheezing Atorvastatin Calcium (Atorvastatin Calcium 20 Mg Tablet) 20 mg PO BEDTIME [facility] Last Admin: 12/11/24 21:17 Dose: 20 mg Documented By: SHANT Benzonatate (Benzonatate 100 Mg Capsule) 200 mg PO TID [facility] Last Admin: 12/11/24 21:16 Dose: 200 mg Documented By: SHANT Calcium Carbonate (Calcium Carbonate 750 Mg Tab.Chew) 750 mg PO Q4H PRN PRN Reason: Heartburn Ceftriaxone Sodium (Ceftriaxone Sodium 1 Gm Vial) 1 gm IVPUSH Q24H [facility] Last Admin: 12/11/24 14:32 Dose: 1 gm Documented By: KATE Lactated Ringer's (Lr) 1,000 mls @ 100 mls/hr IVCONT .Q10H [facility] Last Admin: 12/11/24 23:57 Dose: 100 mls/hr Documented By: SHANT Metronidazole (Flagyl) 500 mg in 100 mls @ 100 mls/hr IV Q8H [facility] Last Infusion: 12/12/24 07:09 Dose: Infused Documented By: SHANT Magnesium Hydroxide (Milk Of Magnesia 30 Ml Oral.Susp) 30 ml PO DAILY PRN PRN Reason: Constipation Melatonin (Melatonin 3 Mg Tablet) 6 mg PO BEDTIME PRN PRN Reason: Insomnia Methylphenidate HCl (Methylphenidate Hcl 10 Mg Tablet) 30 mg PO BID@1000,1600 [facility] Metoprolol Succinate (Metoprolol Succinate Er 25 Mg Tab.Er.24h) 25 mg PO DAILY [facility]; Protocol Morphine Sulfate (Morphine Sulfate 4 Mg/Ml Cartridge) 2 mg IVPUSH Q4H PRN; Protocol PRN Reason: Pain, Severe (Pain Scale 7-10) Last Admin: 12/11/24 21:15 Dose: 2 mg Documented By: SHANT Oxycodone HCl (Oxycodone Hcl Immed Release 5 Mg Tablet) 5 mg PO Q6H PRN PRN Reason: Pain, Moderate(Pain Scale 4-6) Last Admin: 12/11/24 15:48 Dose: 5 mg Documented By: KATE Sodium Chloride (0.9 % Sodium Chloride Flush 3 Ml Syringe) 3 ml IVFLUSH QSHIFT [facility] Last Admin: 12/11/24 23:58 Dose: Not Given Documented By: SHANT Non-Admin Reason: IV Running <Alba Lipscomb PA-C - Last Filed: 12/12/24 08:05> Labs CBC & Chem 7: 12/12/24 06:43 12/12/24 06:43 <Alba Lipscomb PA-C - Last Filed: 12/12/24 08:05> Labs: Laboratory Results - last 24 hr 12/11/24 12/11/24 12/12/24 10:29 12:11 06:43 MCV 91.6 93.1 MCH 31.7 31.3 MCHC 34.6 33.6 RDW 12.6 12.8 Plt Count 355 310 MPV 8.7 L 8.8 L Immature Gran % (Auto) 0.5 H 0.4 Neut % (Auto) 76.5 H 67.0 Lymph % (Auto) 15.0 L 23.6 [place] % (Auto) 7.6 8.6 Eos % (Auto) 0.2 0.1 Baso % (Auto) 0.2 0.3 Lymph # (Auto) 1.9 2.5 [place] # (Auto) 1.0 0.9 Eos # (Auto) 0.0 0.0 Baso # (Auto) 0.0 0.0 Abs Immat Gran (auto) 0.06 H 0.04 H Absolute Neuts (auto) 9.9 H 7.0 Absolute Nucleated RBC 0.000 0.000 Nucleated RBC % (auto) 0.0 0.0 Anion Gap 9 L 13 Estim Creat Clear Calc 90.5 106.1 Estimated GFR > 60 > 60 Random Glucose 117 H 89 Calcium 10.3 H 9.6 D Total Bilirubin 0.6 AST 19 ALT 23 Alkaline Phosphatase 72 Total Protein 6.8 Albumin 4.3 Urine Color Yellow Urine Appearance Clear Urine pH 6.0 Ur Specific [place] >= 1.030 H Urine Protein Trace Urine Glucose (UA) Negative Urine Ketones Negative Urine Blood Negative Urine Nitrite Negative Ur Leukocyte Esterase Negative Influenza Type A (PCR) NEGATIVE Influenza Type B (PCR) NEGATIVE RSV RNA Qual (PCR) NEGATIVE SARS-CoV-2 RNA (RT-PCR) NEGATIVE <Alba Lipscomb PA-C - Last Filed: 12/12/24 08:05> Procedures Date of Service Date of Service: 12/12/24 <Alba Lipscomb PA-C - Last Filed: 12/12/24 08:05> 12/12/24 <Chad Valentine MD - Last Filed: 12/12/24 08:49> Progress Note: A&P Assessment and plan (1) Diverticulitis: Status: Acute <Alba Lipscomb PA-C - Last Filed: 12/12/24 08:05> Assessment and Plan: Admitted with diverticulitis of proximal transverse colon. Feels slightly improved in regards to pain. VSS. Abd remains moderately tender in the RUQ with voluntary guarding. WBC down this morning. Can continue supportive measures for now with IV abx, IVF. Can advance to clear liquids as tolerated. Obtain records from [facility] regarding colonoscopy. If it is in fact not recent, will need colonoscopy down the line. <Alba Lipscomb PA-C - Last Filed: 12/12/24 08:05> Admitted with diverticulitis of proximal transverse colon. Feels slightly improved in regards to pain. VSS. Abd remains moderately tender in the RUQ with voluntary guarding. WBC down this morning. Can continue supportive measures for now with IV abx, IVF. Can advance to clear liquids as tolerated. Obtain records from [facility] regarding colonoscopy. If it is in fact not recent, will need colonoscopy down the line. As noted above <Chad Valentine MD - Last Filed: 12/12/24 08:49> Time Spent With Patient Time: Total time managing care of this patient today ____ minutes. <Alba Lipscomb PA-C - Last Filed: 12/12/24 08:05> Quality Stroke Does the patient have a stroke diagnosis?: No <Alba Lipscomb PA-C - Last Filed: 12/12/24 08:05> VTE Prior VTE?: No <ADORE Al Last Filed: 12/12/24 08:05> VTE Risk Level:: Medical - moderate - high <ADORE Al Last Filed: 12/12/24 08:05> VTE Device Contraindication: Treatment Not Indicated <Alba Lipscomb PA-C - Last Filed: 12/12/24 08:05> VTE Drug Contraindication: N/A - Med Ordered <Alba Lipscomb PA-C - Last Filed: 12/12/24 08:05>
[2024-12-12] MEDS: Metoprolol Succinate ER 25 MG TAB.ER.24H PO (08:23)
[2024-12-12] MEDS: Benzonatate 100 MG CAPSULE 200 MG PO ×3 (08:24→20:45)
[2024-12-12] MEDS: oxyCODONE HCl Immed Release 5 MG TABLET PO ×2 (08:29→18:07)
--- NOTE | 2024-12-12 10:21 | MHC.CM.PN ---
pt is working independent has own ride home will not need services when dcd
[2024-12-12] MEDS: Methylphenidate HCl 10 MG TABLET 30 MG PO (10:54)
[2024-12-12] MEDS: Lactated Ringers 1,000 ML 100 ML IVCONT ×2 (10:57→20:46)
--- NOTE | 2024-12-12 12:46 | P.PNIM_ITS ---
Subjective Subjective Date of Service: 12/12/24 Interval History: No change in abdominal discomfort mostly located in right upper quadrant. Tolerating clear liquid diet Review of Systems Denies chest pain Denies nausea vomiting diarrhea Denies fever chills Denies shortness of breath Admits to right upper quadrant abdominal pain unchanged since admission Physical Exam 2 Vital Signs: Vital Signs: Last Vital Signs Temp 97.8 F 12/12/24 07:52 Pulse 73 12/12/24 07:52 Resp 16 12/12/24 07:52 BP 123/65 12/12/24 07:52 Pulse Ox 92 12/12/24 07:52 O2 Del Method Room Air 12/12/24 07:52 O2 Flow Rate 2 12/11/24 13:26 BMI result Body Mass Index 30.2 Const: Other: Awake alert no acute distress Resp: Other: Clear to auscultation bilaterally no rales rhonchi or wheezes Cardio: Other: No S4; positive S1-S2; no S3 murmurs rubs or gallops GI: Other: Soft tender right upper quadrant without rebound. Bowel sounds quiet but present Extrem: Other: No edema bilaterally Objective Data Active Medications Acetaminophen (Acetaminophen 325 Mg Tablet) 650 mg PO Q6H PRN PRN Reason: Pain, Mild 1-3,fever,headache Albuterol/Ipratropium (Albuterol/Iprat 2.5/0.5mg 3 Ml Ampul.Neb) 3 ml INHALE Q4H PRN PRN Reason: Shortness of Breath/Wheezing Atorvastatin Calcium (Atorvastatin Calcium 20 Mg Tablet) 20 mg PO BEDTIME [facility] Last Admin: 12/11/24 21:17 Dose: 20 mg Documented By: SHANT Benzonatate (Benzonatate 100 Mg Capsule) 200 mg PO TID [facility] Last Admin: 12/12/24 08:24 Dose: 200 mg Documented By: TED Calcium Carbonate (Calcium Carbonate 750 Mg Tab.Chew) 750 mg PO Q4H PRN PRN Reason: Heartburn Ceftriaxone Sodium (Ceftriaxone Sodium 1 Gm Vial) 1 gm IVPUSH Q24H [facility] Last Admin: 12/11/24 14:32 Dose: 1 gm Documented By: KATE Lactated Ringer's (Lr) 1,000 mls @ 100 mls/hr IVCONT .Q10H [facility] Last Admin: 12/12/24 10:57 Dose: 100 mls/hr Documented By: TED Metronidazole (Flagyl) 500 mg in 100 mls @ 100 mls/hr IV Q8H [facility] Last Infusion: 12/12/24 07:09 Dose: Infused Documented By: SHANT Magnesium Hydroxide (Milk Of Magnesia 30 Ml Oral.Susp) 30 ml PO DAILY PRN PRN Reason: Constipation Melatonin (Melatonin 3 Mg Tablet) 6 mg PO BEDTIME PRN PRN Reason: Insomnia Methylphenidate HCl (Methylphenidate Hcl 10 Mg Tablet) 30 mg PO BID@1000,1600 [facility] Last Admin: 12/12/24 10:54 Dose: 30 mg Documented By: TED Metoprolol Succinate (Metoprolol Succinate Er 25 Mg Tab.Er.24h) 25 mg PO DAILY [facility]; Protocol Last Admin: 12/12/24 08:23 Dose: 25 mg Documented By: TED Morphine Sulfate (Morphine Sulfate 4 Mg/Ml Cartridge) 2 mg IVPUSH Q4H PRN; Protocol PRN Reason: Pain, Severe (Pain Scale 7-10) Last Admin: 12/11/24 21:15 Dose: 2 mg Documented By: SHANT Oxycodone HCl (Oxycodone Hcl Immed Release 5 Mg Tablet) 5 mg PO Q6H PRN PRN Reason: Pain, Moderate(Pain Scale 4-6) Last Admin: 12/12/24 08:29 Dose: 5 mg Documented By: TED Sodium Chloride (0.9 % Sodium Chloride Flush 3 Ml Syringe) 3 ml IVFLUSH QSHIFT [facility] Last Admin: 12/12/24 08:23 Dose: Not Given Documented By: TED Non-Admin Reason: IV Running Labs 12/12/24 06:43 12/12/24 06:43 Labs: Laboratory Results - last 24 hr 12/12/24 06:43 MCV 93.1 MCH 31.3 MCHC 33.6 RDW 12.8 Plt Count 310 MPV 8.8 L Immature Gran % (Auto) 0.4 Neut % (Auto) 67.0 Lymph % (Auto) 23.6 [place] % (Auto) 8.6 Eos % (Auto) 0.1 Baso % (Auto) 0.3 Lymph # (Auto) 2.5 [place] # (Auto) 0.9 Eos # (Auto) 0.0 Baso # (Auto) 0.0 Abs Immat Gran (auto) 0.04 H Absolute Neuts (auto) 7.0 Absolute Nucleated RBC 0.000 Nucleated RBC % (auto) 0.0 Anion Gap 13 Estim Creat Clear Calc 106.1 Estimated GFR > 60 Random Glucose 89 Calcium 9.6 D Assessment and Plan (1) Diverticulitis: Status: Acute Plan 64 year old female with PMHx COPD, IBS, hypertension, hyperlipidemia diverticulitits s/p colectomy, s/p hysterectomy admitted for further management of intractable pain related to acute diverticulitis. 1.Acute diverticulitis of the proximal colon -ceftriaxone/Flagyl (2) -pain managemen -clear liquids this a.m.; advance diet as tolerated 2.COPD -stable and well compensated -continue outpatient therapies 3.Hypertension -acceptable control on current therapies -adjust as indicated 4.Mood disorder -continue outpatient therapies Lovenox Full code Patient requires ongoing hospitalization for IV antibiotics to treat acute diverticulitis Quality Stroke Does the patient have a stroke diagnosis?: No VTE Prior VTE?: No VTE Risk Level:: Medical - moderate - high VTE Device Contraindication: Treatment Not Indicated VTE Drug Contraindication: N/A - Med Ordered
[2024-12-12] MEDS: cefTRIAXone sodium 1 GM VIAL IVPUSH (13:13)
[2024-12-12 15:12] VITALS: BP 112/61; PULSE 73; RESP 17; TEMP 36.7; O2SAT 92
[2024-12-12] MEDS: Acetaminophen 325 MG TABLET 650 MG PO (15:23)
[2024-12-12] MEDS: Milk of Magnesia 30 ML ORAL.SUSP PO (18:07)
[2024-12-12 19:23] VITALS: BP 112/64; PULSE 60; RESP 20; TEMP 36.6; O2SAT 93
[2024-12-12] MEDS: Atorvastatin Calcium 20 MG TABLET PO (20:45)
[2024-12-13 02:22] VITALS: BP 135/78; PULSE 69; RESP 18; TEMP 36.6; O2SAT 93
[2024-12-13] MEDS: metroNIDAZOLE/NS 500 MG/100 ML PIGGYBACK 100 MG IV (05:00)
[2024-12-13 06:09] LABS: MANUAL DIFF FLAG NO
[2024-12-13 06:15] LABS: Basophils Percent Auto 0.4 % (0-2); Eosinophils Percent Auto 0.4 % (0-4); Hematocrit 38.3 % (37.0-47.0); Hemoglobin 12.9 g/dl (12.0-16.0); Imm Gran Abs Auto 0.03 X10*3/uL (0.00-0.03); Imm Gran Pct Auto 0.4 % (0.0-0.4); Lymphocytes Absolute Auto 2.1 X10*3/uL (1.2-4.9); Lymphocytes Percent Auto 27.2 % (20-40); Mean Corpuscular HGB Conc 33.7 g/dl (31.0-35.0); Mean Corpuscular Hemoglobin 31.9 pg (27.0-33.0); Mean Corpuscular Volume 94.6 fL (80.0-98.0); Mean Platelet Volume 9.4 fL (9.4-12.3); Monocytes Absolute Auto 0.7 X10*3/uL (0.1-1.2); Monocytes Percent Auto 8.6 % (2-11); Neutrophils Absolute Auto 4.8 x10*3/uL (2.0-8.3); Platelet Count 310 X10*3/uL (160-400); Red Blood Count 4.05 X10*6/uL (4.20-5.50); Red Cell Distribution Width 12.7 % (11.0-16.0); White Blood Count 7.7 X10*3/uL (4.8-10.8)
[2024-12-13 06:49] LABS: Alanine Aminotransferase 9 U/L (0-31); Albumin Level 3.3 g/dL (3.5-5.0); Anion Gap 12 (12-20); Aspartate Amino Transferase 16 U/L (5-31); Bilirubin Total 0.4 mg/dL (0.0-1.0); Blood Urea Nitrogen 4 mg/dL (9-16); Carbon Dioxide 26 mmol/L (22-29); Chloride 106 mmol/L (96-108); Creatinine Clr Calc Pharmacy 111.9; Estimated Glomerular Filt Rate > 60; Glucose Fasting 92 mg/dL (60-99); Potassium 3.7 mmol/L (3.3-5.1); Sodium 140 mmol/L (135-145); Total Protein 5.7 g/dL (6.5-8.0)
[2024-12-13 07:49] VITALS: BP 126/75; PULSE 72; RESP 16; TEMP 36.6; O2SAT 92
[2024-12-13] MEDS: Benzonatate 100 MG CAPSULE 200 MG PO (08:05)
[2024-12-13] MEDS: Metoprolol Succinate ER 25 MG TAB.ER.24H PO (08:06)
[2024-12-13] MEDS: Methylphenidate HCl 10 MG TABLET 30 MG PO (08:06)
[2024-12-13 08:20] LABS: Alkaline Phosphatase 65 U/L (39-117)
[2024-12-13] MEDS: cefTRIAXone sodium 1 GM VIAL IVPUSH (12:32)
[2024-12-13] MEDS: metroNIDAZOLE 500 MG TABLET PO (12:32)
--- NOTE | 2024-12-13 12:40 | P.PNGS_ITS ---
Subjective Subjective Date of Service: 12/13/24 Interval history: Feels well. Pain significantly improved. Tolerating liquids. Physical Exam 2 Vital Signs: Vital Signs: Last Vital Signs Temp 97.8 F 12/13/24 07:49 Pulse 72 12/13/24 07:49 Resp 16 12/13/24 07:49 BP 126/75 12/13/24 07:49 Pulse Ox 92 12/13/24 07:49 O2 Del Method Room Air 12/13/24 07:49 O2 Flow Rate 2 12/11/24 13:26 BMI result Body Mass Index 30.2 Const: General: comfortable, no acute distress and alert O rientation/consciousness: patient oriented x3 Resp: Effort & Inspection: normal respiratory effort GI: Inspection: No distended Palpation (GI): Soft to palpation, Tenderness to palpation present (GI) in the RUQ and no guarding Skin: General skin exam: no rashes or lesions noted Neuro: General: patient oriented x3 and moves all extremities Objective Data Active Medications Acetaminophen (Acetaminophen 325 Mg Tablet) 650 mg PO Q6H PRN PRN Reason: Pain, Mild 1-3,fever,headache Last Admin: 12/12/24 15:23 Dose: 650 mg Documented By: ARIANNA Albuterol/Ipratropium (Albuterol/Iprat 2.5/0.5mg 3 Ml Ampul.Neb) 3 ml INHALE Q4H PRN PRN Reason: Shortness of Breath/Wheezing Atorvastatin Calcium (Atorvastatin Calcium 20 Mg Tablet) 20 mg PO BEDTIME [facility] Last Admin: 12/12/24 20:45 Dose: 20 mg Documented By: CECILY Benzonatate (Benzonatate 100 Mg Capsule) 200 mg PO TID [facility] Last Admin: 12/13/24 08:05 Dose: 200 mg Documented By: ARIANNA Calcium Carbonate (Calcium Carbonate 750 Mg Tab.Chew) 750 mg PO Q4H PRN PRN Reason: Heartburn Ceftriaxone Sodium (Ceftriaxone Sodium 1 Gm Vial) 1 gm IVPUSH Q24H [facility] Last Admin: 12/13/24 12:32 Dose: 1 gm Documented By: ARIANNA Lactated Ringer's (Lr) 1,000 mls @ 100 mls/hr IVCONT .Q10H [facility] Last Infusion: 12/13/24 08:11 Dose: Infused Documented By: ARIANNA Magnesium Hydroxide (Milk Of Magnesia 30 Ml Oral.Susp) 30 ml PO DAILY PRN PRN Reason: Constipation Last Admin: 12/12/24 18:07 Dose: 30 ml Documented By: ARIANNA Melatonin (Melatonin 3 Mg Tablet) 6 mg PO BEDTIME PRN PRN Reason: Insomnia Methylphenidate HCl (Methylphenidate Hcl 10 Mg Tablet) 30 mg PO BID@1000,1600 [facility] Last Admin: 12/13/24 08:06 Dose: 30 mg Documented By: ARIANNA Metoprolol Succinate (Metoprolol Succinate Er 25 Mg Tab.Er.24h) 25 mg PO DAILY [facility]; Protocol Last Admin: 12/13/24 08:06 Dose: 25 mg Documented By: ARIANNA Metronidazole (Metronidazole 500 Mg Tablet) 500 mg PO Q8H [facility] Last Admin: 12/13/24 12:32 Dose: 500 mg Documented By: ARIANNA Morphine Sulfate (Morphine Sulfate 4 Mg/Ml Cartridge) 2 mg IVPUSH Q4H PRN; Protocol PRN Reason: Pain, Severe (Pain Scale 7-10) Last Admin: 12/11/24 21:15 Dose: 2 mg Documented By: SHANT Oxycodone HCl (Oxycodone Hcl Immed Release 5 Mg Tablet) 5 mg PO Q6H PRN PRN Reason: Pain, Moderate(Pain Scale 4-6) Last Admin: 12/12/24 18:07 Dose: 5 mg Documented By: ARIANNA Sodium Chloride (0.9 % Sodium Chloride Flush 3 Ml Syringe) [facility] Last Admin: 12/13/24 06:47 Dose: Not Given Documented By: ARIANNA Non-Admin Reason: IV Running Labs 12/13/24 05:36 12/13/24 05:36 Labs: Laboratory Results - last 24 hr 12/13/24 05:36 MCV 94.6 MCH 31.9 MCHC 33.7 RDW 12.7 Plt Count 310 MPV 9.4 Immature Gran % (Auto) 0.4 Neut % (Auto) 63.0 Lymph % (Auto) 27.2 [place] % (Auto) 8.6 Eos % (Auto) 0.4 Baso % (Auto) 0.4 Lymph # (Auto) 2.1 [place] # (Auto) 0.7 Eos # (Auto) 0.0 Baso # (Auto) 0.0 Abs Immat Gran (auto) 0.03 Absolute Neuts (auto) 4.8 Absolute Nucleated RBC 0.000 Nucleated RBC % (auto) 0.0 Anion Gap 12 Estim Creat Clear Calc 111.9 Estimated GFR > 60 Fasting Glucose 92 Calcium 10.0 Total Bilirubin 0.4 AST 16 ALT 9 Alkaline Phosphatase 65 Total Protein 5.7 L Albumin 3.3 L Procedures Date of Service Date of Service: 12/13/24 Progress Note: A&P Assessment and plan (1) Diverticulitis: Status: Acute Plan Admitted with diverticulitis of proximal transverse colon. Feels significantly improved this morning. VSS. RUQ remains tender but overall much improved. Can advance diet and dc home later today on oral abx if tolerating. F/u in office in 1 week. Time Spent With Patient Time: Total time managing care of this patient today ____ minutes. Quality Stroke Does the patient have a stroke diagnosis?: No VTE Prior VTE?: No VTE Risk Level:: Medical - moderate - high VTE Device Contraindication: Treatment Not Indicated VTE Drug Contraindication: N/A - Med Ordered
--- NOTE | 2024-12-13 13:11 | P.DS_ITS ---
DS: Providers Provider Date of Service: 12/13/24 Date of admission: 12/11/24 13:07 Date of discharge: 12/13/24 Primary care physician: Chavo Hernandez DO, MD Consults: 12/11/24 12:22 Consult to General Surgery Routine Consulting Provider: [facility] General Surgeons Reason for consultation: Abdominal pain, diverticulitis, s/p colectomy for diverticulitis. Has provider been notified: Yes Attending physician on discharge: Surendra Mcarthur Discharging clinician: Jahaira Vidales DS: Diagnosis Discharge Diagnosis (1) Diverticulitis: Status: Acute DS: Summary Hospital Course Hospital Course: From H&P on the day of admission 64 year old female with PMHx COPD, IBS, diverticulitits s/p colectomy, s/p hysterectomy presented to the ED earlier today for evaluation of severe right-sided abdominal pain that started abruptly around 4-5 this morning. She states the pain started in the right lower quadrant but is now more severe in the right upper quadrant. There is no other radiation. She does experience some mild nausea. No fevers, chills, vomiting, change in bowel habits, melena, hematochezia, anorexia. No unintentional weight loss. She does tell me that she had an upper respiratory infection about 2 weeks ago and was recently on prednisone as well as an inhaler. States that symptoms have mostly resolved. While asleep in the ED, she did desaturate to 88%, question whether this was related to narcotic administration in the ED. vital signs have otherwise been stable. She has a leukocytosis of 12.5. Renal function and electrolyte levels unremarkable. Glucose 117. Hepatic function within normal limits. Urinalysis not indicative of infection though elevated specific gravity. Negative for COVID, flu, RSV. CT abdomen/pelvis shows marked wall thickening of the proximal transverse colon with associated pericolonic inflammatory stranding possibly representing diverticulitis. Follow-up colonoscopy removed to exclude underlying neoplasm. She did have colonoscopy in the past, unclear when this was. In the ED, has been treated with IV Unasyn and Flagyl with pantoprazole, IV Tylenol, IV morphine. Acute diverticulitis of the transverse colon Treated with IV ceftriaxone/Flagyl, diet was slowly advanced, abdominal pain slowly improved. Tolerated regular diet, had bowel movement. Blood cultures have remained negative, she has remained afebrile and leukocytosis resolved. She is now stable for discharge home. She will be discharged home to complete course of oral antibiotics. Recommend high-fiber diet. Recommend outpatient follow-up colonoscopy if 1 has not been done recently. Time Attestation Discharge Coordination Time (in mins): 35 Quality: Safe Use of Opioids Does Pt have an Active Cancer Diagnosis on the Problem List?: No Quality: Stroke Does the patient have a stroke diagnosis?: No Physical Exam Vital Signs: Vital Signs: Last Vital Signs Temp 97.8 F 12/13/24 07:49 Pulse 72 12/13/24 07:49 Resp 16 12/13/24 07:49 BP 126/75 12/13/24 07:49 Pulse Ox 92 12/13/24 07:49 O2 Del Method Room Air 12/13/24 07:49 O2 Flow Rate 2 12/11/24 13:26 BMI result Body Mass Index 30.2 Const: General: cooperative, comfortable, no acute distress, alert and awake Nutritional Appearance: overweight Orientation/consciousness: patient oriented x3 GI: Inspection: No distended Palpation (GI): Soft to palpation Neuro: General: patient oriented x3, moves all extremities and CN's II-XI intact bilaterally Extrem: General: Yes no pedal edema DS: Data Data Completed and Pending Labs on day of discharge: Laboratory Results - last 24 hr 12/13/24 05:36 WBC 7.7 RBC 4.05 L Hgb 12.9 Hct 38.3 MCV 94.6 MCH 31.9 MCHC 33.7 RDW 12.7 Plt Count 310 MPV 9.4 Immature Gran % (Auto) 0.4 Neut % (Auto) 63.0 Lymph % (Auto) 27.2 [place] % (Auto) 8.6 Eos % (Auto) 0.4 Baso % (Auto) 0.4 Lymph # (Auto) 2.1 [place] # (Auto) 0.7 Eos # (Auto) 0.0 Baso # (Auto) 0.0 Abs Immat Gran (auto) 0.03 Absolute Neuts (auto) 4.8 Absolute Nucleated RBC 0.000 Nucleated RBC % (auto) 0.0 Sodium 140 Potassium 3.7 Chloride 106 Carbon Dioxide 26 Anion Gap 12 BUN 4 L Creatinine 0.55 Estim Creat Clear Calc 111.9 Estimated GFR > 60 Fasting Glucose 92 Calcium 10.0 Total Bilirubin 0.4 AST 16 ALT 9 Alkaline Phosphatase 65 Total Protein 5.7 L Albumin 3.3 L Discharge Plan Discharge Anticipated Discharge Date/Time: 12/13/24 13:16 Patient Disposition: Home, Self-Care Discharge Diagnosis: Acute uncomplicated diverticulitis Referrals: Chavo Hernandez DO, MD [Primary Care Provider] - 1 Week Chad Valentine MD [Physician] - 1 Week Discharge Medications: New cefuroxime axetil 500 mg tablet 500 mg PO Q12H 4 Days Qty: 8 0RF metronidazole 500 mg tablet 500 mg PO Q8H 4 Days Qty: 12 0RF Continued benzonatate 200 mg capsule 200 mg PO TID methylphenidate HCl 20 mg tablet 30 mg PO BID@1000,1600 simvastatin 40 mg tablet 40 mg PO BEDTIME metoprolol succinate 25 mg tablet extended release 24 hr 25 mg PO DAILY Discharge Orders: Discharge Order (Routine); Ordered 12/13/24 Ordered By: Jahaira Vidales Diet: Advance to usual diet Activity on Discharge: No heavy lifting Stand Alone Forms: Patient Portal Discharge page, Work/School Release Print Language: Kiswahili Care Plan Goals: See below Health Concerns: Acute uncomplicated diverticulitis Plan of Treatment: Complete course of antibiotics as prescribed Recommend outpatient follow-up with General surgery in 1 week Recommend colonoscopy if 1 has not been completed recently Recommend high-fiber diet once completed antibiotics and abdominal pain has completely resolved Assessment: See discharge summary
--- NOTE | 2024-12-13 13:57 | MHC.CM.PN ---
Patient discharged to home self care. She arranged for transportation home.
== END 2024-12-13 13:47 | disposition home or self-care (01) | DRG 392 ==
LOC: HO.ED 12:22 → HO.EDOVER 13:13 → HO.S3 17:16
PROVIDERS: Hospitalist; Physician Assistant Medical; Admitting Provider Physician Assistant; Emergency Provider Emergency Medicine; PCP Internal Medicine; Visit Provider Physician Assistant Medical
DX: K57.32 Diverticulitis of large intestine without perforation or abscess without bleeding (principal); F17.210 Nicotine dependence, cigarettes, uncomplicated; Z71.6 Tobacco abuse counseling; J44.9 Chronic obstructive pulmonary disease, unspecified; E78.5 Hyperlipidemia, unspecified; I10 Essential (primary) hypertension; F39 Unspecified mood [affective] disorder; Z20.822 Contact with and (suspected) exposure to COVID-19; Z87.891 Personal history of nicotine dependence; Z79.899 Other long term (current) drug therapy
CPT/HCPCS: 0241U; 36415; 74177; 80048; 80053; 81003; 85025; 99285; J0131; J0295; J0696; J1836; J2270; J2405; J2470; J7120; Q9967

== ENCOUNTER → 2024-12-11 10:20 | Outpatient (BNV) | payer OTHER, SELFPAY | PROVIDERS: Emergency Provider Emergency Medicine; PCP Internal Medicine; Visit Provider Radiology Diagnostic Radiology | DX: K63.89 Other specified diseases of intestine (principal) | CPT/HCPCS: 74177 ==

== ENCOUNTER → 2024-12-11 13:07 | Outpatient (BNV) | payer OTHER, SELFPAY | PROVIDERS: Admitting Provider Physician Assistant; Emergency Provider Emergency Medicine; PCP Internal Medicine; Visit Provider Surgery | DX: K57.92 Diverticulitis of intestine, part unspecified, without perforation or abscess without bleeding (principal) | CPT/HCPCS: 99223; 99232 ==

== ENCOUNTER → 2024-12-11 13:07 | Outpatient (BNV) | payer OTHER, SELFPAY | PROVIDERS: Admitting Provider Physician Assistant; Emergency Provider Emergency Medicine; PCP Internal Medicine; Visit Provider Physician Assistant | DX: K57.92 Diverticulitis of intestine, part unspecified, without perforation or abscess without bleeding (principal) | CPT/HCPCS: 99223; 99233; 99239 ==